=== PATIENT | male | born 1935 | race Caucasian/White ===

== ENCOUNTER → 2018-04-26 14:37 | Outpatient (CLI) | payer MEDICARE | END | disposition home or self-care (01) | LOC: D.RAD 14:37 | DX: M79.601 Pain in right arm (principal) ==

== ENCOUNTER → 2018-05-26 13:13 | Outpatient (CLI) | payer MEDICARE ==
--- NOTE | ~2018-05-26 | EC ---
PATIENT:ADOLFO HAIDER DATE OF SERVICE: 05/26/18 SEX: M MEDICAL RECORD: [id number] DATE OF : 39 LOCATION:D[facility] AGE OF PATIENT: 82 ADMISSION DATE: 05/26/18 REFERRING PHYSICIAN: INTERPRETING PHYSICIAN: RENA NULL MD ECHOCARDIOGRAM REPORT ECHO CHARGES 4 ECHO COMPLETE Date: 05/26 CLINICAL DIAGNOSIS: HTN/CP/PALPITATIONS/DYSPNEA ECHOCARDIOGRAPHIC MEASUREMENTS (adult normal given) AC root (d.<3.7cm) 3.5 cm LV Septum d (<1.2 cm> 1.1 cm Valve Excursion 1.2 cm LV Septum (systole) 1.5 cm Left Atria (s.<4.0cm> 4.8 cm LVPW d(<1.2cm) 1.2 cm RV (d.<2.3cm) 3.0 cm LVPW (sytole) 1.6 cm LV diastole(<5.6CM) 5.2 cm MV E-F(>70mm/sec) cm LV systole 4.0 cm LVOT Diameter 2.1 cm MV exc.(>10mm) cm Est.ejection fraction (50-75%) % DOPPLER: LVIT cm/sec A 102 cm/sec E 54.0 cm/sec LA cm/sec RVSP 40.1 mmHg LVOT 101 cm/sec AOP1/2T m/s Asc. Ao 250 cm/sec RVOT 66.0 cm/sec RA cm/sec PA 126 cm/sec AV Gradient Peak 25.0 mmHg AV Mean 15.0 mmHg AV Area 1.2 cm MV Gradient Peak 4.5 mmHg MV Mean 1.3 mmHg MV Area cm COMMENTS: Music Grapher: Marilou ANDREOE Electrician Crane Maintenance: 4 Dr. Null TAPE# PACS Pericardial Effusion N DATE OF SERVICE: PROCEDURE: Transthoracic echocardiogram. FINDINGS: 1. This is a technically difficult study. Left ventricular function appears to be grossly normal. Endocardial structures are not well visualized. The overall ejection fraction appears to be 55%. Inflow characteristics are very suggestive of diastolic dysfunction. 2. Left atrium is moderately dilated. ECHOCARDIOGRAM REPORT [id number] ADOLFO HAIDER 3. The mitral valve has trace mitral regurgitation, not well visualized. 4. The aortic valve has trace to mild aortic regurgitation and mild aortic stenosis, not well visualized. 5. Tricuspid valve has trace tricuspid regurgitation. RVSP between 35 and 40 mmHg. 6. The pericardium is normal. 7. The right ventricle is mildly dilated. 8. The right atrium is overall normal. There is no pericardial effusion. CONCLUSIONS: The patient has evidence of hypertensive heart disease, mild aortic valve stenosis. Dilatation of the left atrium, all consistent with hypertensive heart disease. TRANSINT:[id number] Voice Confirmation ID: [id number] DOCUMENT ID: [id number] RENA NULL MD at 1436 CC: [id number] DICTATION DATE: 05/28/18 1126 RN OBSERVATION: 05/28/18 1142 DEP CLI 05/26/18 [facility] [address] [place] [address]
== END | disposition home or self-care (01) ==
LOC: D.ECHO 13:13
DX: I10 Essential (primary) hypertension (principal); R06.02 Shortness of breath; R07.9 Chest pain, unspecified; R00.2 Palpitations

== ENCOUNTER 2018-11-18 18:27 | Observation (INO) | payer MEDICARE ==
[~2018-11-18] VITALS: Ht 185.4 cm; Wt 104.3 kg
[2018-11-18] MEDS ORDERED: [UNRECOGNIZED DRUG - REMARK] (18:38)
[2018-11-18] MEDS ORDERED: NORCO (18:38)
--- NOTE | 2018-11-18 19:00 | NUR ---
HAND-OFF REPORT GIVEN TO DEMETRA JIMENEZ USING SBAR COMMUNICATION.
[2018-11-18 19:15] VITALS: BP 168/88
--- NOTE | 2018-11-18 19:15 | NUR ---
PT REPORT HANDED OFF FROM DEMETRA DELEON. CALL LIGHT WITHIN REACH, WILL CONTINUE TO MONITOR.
[2018-11-18 19:27] LABS: BASOPHILS 0.2 % (0-2); EOSINOPHILS 0 % (0-7); HEMATOCRIT 38.6 % (42.0-54.0); HEMOGLOBIN 12.7 g/dL (13.5-17.5); IMMATURE GRANULOCYTES 0.4 % (0-5); LYMPHOCYTES 8.8 % (15-50); MCH 29.7 pg (26.0-34.0); MCHC 32.9 g/dL (31.0-37.0); MCV 90.4 fL (80.0-100.0); MEAN PLATELET VOLUME 9.9 fL (7.4-10.4); NEUTROPHILS 85.6 % (40-80); PLATELET COUNT 180 10x3/uL (130-400); RBC 4.27 10x6/uL (4.20-6.10); WBC 9.9 10x3/uL (4.8-10.8)
[2018-11-18 19:37] LABS: APTT 24.7 SECONDS (22.8-39.4); INR 1.02 (0.85-1.17); PROTIME 12.9 SECONDS (11.6-15.0)
[2018-11-18 20:04] LABS: ALBUMIN 3.3 g/dL (3.4-5.0); ALKALINE PHOSPHATASE 77 U/L (46-116); ALT (SGPT) 25 U/L (10-68); CALC OSMOLALITY 283 mosm/kg (275-300); CALCIUM 8.6 mg/dL (8.5-10.1); CHLORIDE - SERUM 102 mmol/L (98-107); CKMB 11.3 U/L (0.0-3.6); CREATINE KINASE 658 UL (21-232); CREATININE - SERUM 1.1 mg/dL (0.6-1.3); GLUCOSE 121 mg/dL (74-106); MAGNESIUM - SERUM 1.8 mg/dL (1.8-2.4); POTASSIUM - SERUM 4.4 mmol/L (3.5-5.1); PROTEIN - SERUM 6.8 g/dL (6.4-8.2); SODIUM 140 mmol/L (136-145); THYROID STIMULATING HORMONE 4.26 uIU/mL (0.36-3.74); TROPONIN-I < 0.017 ng/mL (0.000-0.060); UREA NITROGEN 25 mg/dL (7-18); eGFR NON AFRICAN AMERICAN 68 mL/min (90-120)
[2018-11-18 20:31] LABS: BILIRUBIN - TOTAL 0.31 mg/dL (0.2-1.3)
[2018-11-18 21:01] VITALS: BP 175/95
[2018-11-18 23:01] VITALS: BP 169/80
[2018-11-19] VITALS (7 sets, daily range): BP systolic 140–178; BP diastolic 71–98; BMI 30.4
--- NOTE | 2018-11-19 02:11 | NUR ---
PT STABLE, CALL LIGHT WITHIN REACH, DENIES NEEDS, WILL CONTINUE TO MONITOR.
[2018-11-19 04:04] LABS: APPEARANCE HAZY (CLEAR); BILIRUBIN NEGATIVE (NEGATIVE); COLOR YELLOW (YELLOW); GLUCOSE NEGATIVE (NEGATIVE); KETONE NEGATIVE (NEGATIVE); NITRITE NEGATIVE (NEGATIVE); PROTEIN TRACE mg/dL (NEGATIVE); SPECIFIC GRAVITY 1.015 (1.005-1.020); UROBILINOGEN NORMAL (NORMAL); WHITE CELLS - URINE RARE /hpf (0-5)
[2018-11-19 04:05] LABS: BACTERIA NONE SEEN /hpf (NONE SEEN); EPITHELIAL CELLS NSEEN /hpf (0-5)
--- NOTE | 2018-11-19 07:00 | NUR ---
PATIENT RESTING WITH EYES CLOSED, AROUSES WITH VERBAL STIMULAS.
--- NOTE | 2018-11-19 09:31 | NUR ---
PATIENT A/O X 3, ASSISTED TO BEDSIDE TOILET, URINATED, ASSISTED BACK TO BED.
--- NOTE | 2018-11-19 11:00 | NUR ---
NO CHANGES IN PATIENT STATUS.
[2018-11-20 04:00] VITALS: BP 126/79
[2018-11-20 06:24] LABS: BASOPHILS 0.2 % (0-2); EOSINOPHILS 0.9 % (0-7); HEMATOCRIT 35.8 % (42.0-54.0); HEMOGLOBIN 11.9 g/dL (13.5-17.5); IMMATURE GRANULOCYTES 0.2 % (0-5); LYMPHOCYTES 14.9 % (15-50); MCH 29.6 pg (26.0-34.0); MCHC 33.2 g/dL (31.0-37.0); MCV 89.1 fL (80.0-100.0); MEAN PLATELET VOLUME 10.6 fL (7.4-10.4); MONOCYTES 10.9 % (2-11); NEUTROPHILS 72.9 % (40-80); PLATELET COUNT 204 10x3/uL (130-400); RBC 4.02 10x6/uL (4.20-6.10); RDW 14.3 % (11.5-14.5); WBC 8.9 10x3/uL (4.8-10.8)
[2018-11-20 06:39] LABS: CALC OSMOLALITY 280 mosm/kg (275-300); CALCIUM 8.5 mg/dL (8.5-10.1); CARBON DIOXIDE 24.6 mmol/L (21.0-32.0); CHLORIDE - SERUM 104 mmol/L (98-107); GLUCOSE 94 mg/dL (74-106); POTASSIUM - SERUM 3.8 mmol/L (3.5-5.1); SODIUM 140 mmol/L (136-145); eGFR NON AFRICAN AMERICAN 76 mL/min (90-120)
--- NOTE | 2018-11-20 06:39 | NUR ---
PT IN BED RESTING QUIETLY WITH EYES CLOSED. VITAL SIGNS STABLE AND AFEBRILE. NO VISUAL CUES OF DISTRESS NOTED. WILL CONTINUE TO MONITOR.
[2018-11-20 06:40] LABS: UREA NITROGEN 18 mg/dL (7-18)
--- NOTE | 2018-11-20 06:40 | NUR ---
PT IN BED RESTING QUIETLY WITH EYES CLOSED. VITAL SIGNS STABLE AND AFEBRILE. NO VISUAL CUES OF DISTRESS NOTED. WILL CONTINUE TO MONITOR.
--- NOTE | 2018-11-20 08:00 | NUR ---
LYING IN BED,WITHOUT NEEDS.CALL LIGHT IN REACH
[2018-11-20 08:30] VITALS: BP 165/79
[2018-11-20 11:18] VITALS: Ht 185.4 cm; Wt 104.3 kg
[2018-11-20 12:30] VITALS: BP 160/80
--- NOTE | 2018-11-20 14:19 | NUR ---
PT RESTING IN BED. NO SIGNS OF DISTRESS. IV TO RIGHT HAND PATENT NO REDNESS OR TENDERNESS. HAS BRUISE TO FORHEAD FROM HOME. DENIES ANY NEED AT THIS TIME. CALL LIGHT IN REACH. BED LOW POSITION. NO FAMILY AT BEDSIDE AT THIS TIME.
[2018-11-20 20:00] VITALS: BP 168/83
[2018-11-21 04:00] VITALS: BP 144/71
--- NOTE | 2018-11-21 07:37 | NUR ---
LYING IN BED,WITHOUT NEEDS AT PRESENT.
--- NOTE | 2018-11-21 07:51 | NUR ---
PT RESTING IN BED. NO SIGNS OF DISTRESS. IV TO RIGHT HAND PATENT NO REDNESS OR TENDERNESS. HAS BRUISE TO FORHEAD. ON TELEMETRY 91 SR. COMPLAINS OF NOT BEING ABLE TO SLEEP AND ANXIETY. MED GIVEN THIS AM FOR ANXIETY. DENIES ANY OTHER NEED AT THIS TIME. CALL LIGHT IN REACH. BED LOW POSITION. NO FAMILY AT BEDSIDE. AWAITNG FOR WANTLorie TO BE DISCHARGED TODAY.
[2018-11-21 08:56] VITALS: BP 141/102
--- NOTE | 2018-11-21 12:11 | MORECARE ---
CASE MANAGEMENT DISCHARGE SUMMARY PATIENT: ADOLFO HAIDER UNIT: [id number] ADM DATE: 11/19/18 AGE: 83 : 37 SEX: M ROOM/BED: D.2211 AUTHOR: SALEEM SPICER PHYSICIAN: REFERRING PHYSICIAN: JEFRY TOLEDO MD DATE OF SERVICE: 11/21/18 Discharge Plan Patient Name: ADOLFO HAIDER Facility: [facility]:[place] : 1935 Planned Disposition: Home Anticipated Discharge Date: 11/21/18 Discharge Date: Expected LOS: 2 Initial Reviewer: [email or web address] Initial Review Date: 11/19/2018 Generated: 11/21/18 1:11 pm DCPIA - Discharge Planning Initial Assessment Updated by [email or web address]: Mali Norris on 11/21/18 12:08 pm * Is the patient Alert and Oriented? Yes * How many steps to enter\exit or inside your home? none * PCP DR Toledo * Pharmacy [facility] [address] [facility] * Preadmission Environment Home Alone * ADLs Independent * Equipment Cane * Other Equipment DENIES ANY ADDITIONAL DME * List name and contact numbers for known caregivers / representatives who currently or will assist patient after discharge: RIGO LAWRENCE- DAUGHTER- [phone] * Verbal permission to speak to the caregivers and representatives has been obtained from the patient. No * Community resources currently utilized None * Please name any agencies selected above. N/A * Additional services required to return to the preadmission environment? No * Can the patient safely return to the preadmission environment? Yes * Has this patient been hospitalized within the prior 30 days at any hospital? No Coverage Notice Reviewer: [id number] - Isabella Worley Notice Issued Date-Time: 11/19/2018 12:55 Notice Type: Medicare Outpatient Observation Notice Notice Delivered To: Patient Relationship to Patient: Gate Operator Name: Delivery Method: HAND - Hand Delivered Gisselle Days: Prior Verbal Notification: Recipient Understood Notice: Recipient Signature: Med Rec Note Co-signed by Attending: Coverage Notice Comment: Patient A&O x 3 at time of signing Patient Name: ADOLFO HAIDER Page [phone] at 1211 All edits/amendments must be made on the electronic document DICTATION DATE: 11/21/18 121 AUTOMOTIVE TECHNOLOGY INSTRUCTOR: JUDE 11/21/18 1211 RPT#: [id number] DC DATE: STATUS: ADM IN [facility] [address] [place] [address] END OF REPORT
--- NOTE | 2018-11-21 12:18 | MORECARE ---
CASE MANAGEMENT DISCHARGE SUMMARY PATIENT: ADOLFO HAIDER UNIT: [id number] ADM DATE: 11/19/18 AGE: 83 : 37 SEX: M ROOM/BED: D.2211 AUTHOR: DANNIELLE,DOC PHYSICIAN: REFERRING PHYSICIAN: JEFRY TOLEDO MD DATE OF SERVICE: 11/21/18 Discharge Plan Patient Name: ADOLFO HAIDER Facility: [facility]:[place] : 1935 Planned Disposition: Home Anticipated Discharge Date: 11/21/18 Discharge Date: Expected LOS: 2 Initial Reviewer: [id number] Initial Review Date: 11/19/2018 Generated: 11/21/18 1:18 pm Comments DCP- Discharge Planning Updated by [email or web address]: Mali Norris on 11/21/18 11:[address] DELVIS MET WITH THE PATIENT AT THE BEDSIDE. HE PLANS ON BEING DISCHARGED TO HOME TODAY AFTER 2 PM. HE LIVES ALONE. HE STATES HIS NEIGHBOR WILL BE PROVIDING TRANSPORTATION TO HOME. HE HAS NO STEPS OR STAIRS TO ENTER HIS HOME. HE UTILIZES A CANE TO AMBULATE. DENIES ANY ADDITIONAL DME. DISCUSSED AN EMERGENCY PERSONAL CALL SYSTEM. THE PATIENT STATED HE WOULD CONSIDER. DELVIS PROVIDED HIS NURSE W/ THE NUMBER FOR ASSISTANCE FROM [facility] ON [address] FOR PROVIDERS IN [place]. INFO TO BE DOCUMENTED ON HIS DISCHARGE PAPERWORK [phone]. INSTRUCTED PATIENT TO CALL HIS PAIN MANAGMENT PHYSICAN THURSDAY AM. HE SEES DR SALDANA. ADVISED PRIMARY NURSE TO PLACE INSTRUCTIONS ON D/C INSTRUCTIONS. SPOKE W/ NATALIE MOFFETT RE: PAIN MGT FOLLOW-UP. PATIENT DENIES ANY ADDITIONAL NEEDS. DCPIA - Discharge Planning Initial Assessment Updated by [email or web address]: Mali Norris on 11/21/18 12:08 pm * Is the patient Alert and Oriented? Yes * How many steps to enter\exit or inside your home? none * PCP DR Toledo * Pharmacy [facility] [address] [facility] * Preadmission Environment Home Alone * ADLs Independent * Equipment Cane * Other Equipment DENIES ANY ADDITIONAL DME * List name and contact numbers for known caregivers / representatives who currently or will assist patient after discharge: RIGO LAWRENCE- DAUGHTER- [phone] * Verbal permission to speak to the caregivers and representatives has been obtained from the patient. No * Community resources currently utilized None * Please name any agencies selected above. N/A * Additional services required to return to the preadmission environment? No * Can the patient safely return to the preadmission environment? Yes * Has this patient been hospitalized within the prior 30 days at any hospital? No Coverage Notice Reviewer: [id number] Vanessa Worley Notice Issued Date-Time: 11/19/2018 12:55 Notice Type: Medicare Outpatient Observation Notice Notice Delivered To: Patient Relationship to Patient: Certification And Selection Specialist Name: Delivery Method: HAND - Hand Delivered Gisselle Days: Prior Verbal Notification: Recipient Understood Notice: Recipient Signature: Med Rec Note Co-signed by Attending: Coverage Notice Comment: Patient A&O x 3 at time of signing Last DP export: 11/21/18 11:11 a Patient Name: ADOLFO HAIDER Page [phone] at 1218 All edits/amendments must be made on the electronic document DICTATION DATE: 11/21/181216 EARTH MOVER: JUDE 11/21/18 1217 RPT#: [id number] DC DATE: STATUS: ADM IN [facility] [address] [place] [address] END OF REPORT
--- NOTE | 2018-11-21 14:51 | NUR ---
DISCHARGE INSTRUCTIONS GIVEN. SEEMS TO UNDERSTAND INSTRUCTIONS. IV OUT TIP INTACT. SUPERVISOR BONDING TAKEN OFF AND RETURNED. NO SIGNS OF DISTRESS. LEFT WITH HOSPTIAL STAFF TO GO HOME WITH FRIEND IN PERSONAL RIDE. DENIES ANY NEED BEFORE LEAVING
--- NOTE | 2018-11-24 07:58 | MORECARE ---
CASE MANAGEMENT DISCHARGE SUMMARY PATIENT: ADOLFO HAIDER UNIT: [id number] ADM DATE: 11/19/18 AGE: 83 : 37 SEX: M ROOM/BED: D.2211 AUTHOR: DANNIELLEDOC PHYSICIAN: REFERRING PHYSICIAN: JEFRY TOLEDO MD DATE OF SERVICE: 11/24/18 Discharge Plan Patient Name: ADOLFO HAIDER Facility: [facility]:[place] : 1935 Planned Disposition: Home Anticipated Discharge Date: 11/21/18 Discharge Date: 11/21/2018 Expected LOS: 2 Initial Reviewer: [email or web address] Initial Review Date: 11/19/2018 Generated: 11/24/18 8:57 am Comments DCP- Discharge Planning Updated by [email or web address]: Mali Norris on 11/21/18 11:[address] DELVIS MET WITH THE PATIENT AT THE BEDSIDE. HE PLANS ON BEING DISCHARGED TO HOME TODAY AFTER 2 PM. HE LIVES ALONE. HE STATES HIS NEIGHBOR WILL BE PROVIDING TRANSPORTATION TO HOME. HE HAS NO STEPS OR STAIRS TO ENTER HIS HOME. HE UTILIZES A CANE TO AMBULATE. DENIES ANY ADDITIONAL DME. DISCUSSED AN EMERGENCY PERSONAL CALL SYSTEM. THE PATIENT STATED HE WOULD CONSIDER. DELVIS PROVIDED HIS NURSE W/ THE NUMBER FOR ASSISTANCE FROM [facility] ON [address] FOR PROVIDERS IN [place]. INFO TO BE DOCUMENTED ON HIS DISCHARGE PAPERWORK [phone]. INSTRUCTED PATIENT TO CALL HIS PAIN MANAGMENT PHYSICAN THURSDAY AM. HE SEES DR SALDANA. ADVISED PRIMARY NURSE TO PLACE INSTRUCTIONS ON D/C INSTRUCTIONS. SPOKE W/ NATALIE MOFFETT RE: PAIN MGT FOLLOW-UP. PATIENT DENIES ANY ADDITIONAL NEEDS. DCPIA - Discharge Planning Initial Assessment Updated by [email or web address]: Mali Norris on 11/21/18 12:08 pm * Is the patient Alert and Oriented? Yes * How many steps to enter\exit or inside your home? none * PCP DR Toledo * Pharmacy [facility] [address] [facility] * Preadmission Environment Home Alone * ADLs Independent * Equipment Cane * Other Equipment DENIES ANY ADDITIONAL DME * List name and contact numbers for known caregivers / representatives who currently or will assist patient after discharge: RIGO LAWRENCE- DAUGHTER- [phone] * Verbal permission to speak to the caregivers and representatives has been obtained from the patient. No * Community resources currently utilized None * Please name any agencies selected above. N/A * Additional services required to return to the preadmission environment? No * Can the patient safely return to the preadmission environment? Yes * Has this patient been hospitalized within the prior 30 days at any hospital? No Coverage Notice Reviewer: [id number] Vanessa Worley Notice Issued Date-Time: 11/19/2018 12:55 Notice Type: Medicare Outpatient Observation Notice Notice Delivered To: Patient Relationship to Patient: [place] Artist Name: Delivery Method: HAND - Hand Delivered Gisselle Days: Prior Verbal Notification: Recipient Understood Notice: Recipient Signature: Med Rec Note Co-signed by Attending: Coverage Notice Comment: Patient A&O x 3 at time of signing Last DP export: 11/21/18 11:18 a Patient Name: ADOLFO HAIDER Page [phone] at 0758 All edits/amendments must be made on the electronic document DICTATION DATE: 11/24/18 0757 HELP DESK AGENT: JUDE 11/24/18 0757 RPT#: [id number] DC DATE:11/21/18 STATUS: DIS IN [facility] [address] [place] [address] END OF REPORT
== END 2018-11-21 14:53 | disposition home or self-care (01) ==
LOC: D.ER 18:27 → D.EDHOLD 11-19 02:20 → OBSVTIME 11-19 02:20 → D.EDHOLD 11-19 02:20 → D.MS 11-19 13:06
PROVIDERS: Emergency Medicine; Family Medicine; ADMIT Legal Medicine
DX: F11.929 Opioid use, unspecified with intoxication, unspecified (principal); G89.29 Other chronic pain; S00.93XA Contusion of unspecified part of head, initial encounter; X58.XXXA Exposure to other specified factors, initial encounter

== ENCOUNTER → 2019-06-08 13:30 | Outpatient (CLI) | payer MEDICARE ==
[2018-11-20 11:18] VITALS: BMI 30.3
[~2019-06-08 13:30] MED LIST: NORCO; [UNRECOGNIZED DRUG - REMARK]
== END | disposition home or self-care (01) ==
LOC: D.RAD 13:30
PROVIDERS: ATTEND Emergency Medicine
DX: M25.511 Pain in right shoulder (principal)